=== PATIENT | female | born 1980 | race Caucasian/White ===

== ENCOUNTER 2017-08-08 16:25 | Emergency (ER) | payer OTHER, MEDICAID ==
[~2017-08-08] VITALS: Ht 160 cm; Wt 131.5 kg
[~2017-08-08 16:25] MED LIST: NOHOMEMEDICATIONS
[2017-08-08 17:04] LABS: HEMATOCRIT 41.9 % (37.0-47.0); HEMOGLOBIN 13.9 gm/dL (12.0-15.0); MCH 28.8 pg (26.0-34.0); MCHC 33.3 g/dL (28.0-37.0); MCV 86.6 fL (80.0-100.0); MPV 7.8 fl. (7.2-11.1); NUCLEATED RBCS 0 /100WBC; PLATELET COUNT* 266 thou/uL (150-400); RBC 4.84 mil/uL (4.20-5.00); RDW-CV 13.7 % (10.5-14.5); WBC 6.2 thou/uL (4.0-11.0)
[2017-08-08 17:14] LABS: ANION GAP 10 mmol/L (7-16); BUN 13 mg/dL (7-18); CALCIUM 9.2 mg/dL (8.5-10.1); CHLORIDE 98 mmol/L (98-107); CO2 27 mmol/L (21-32); CREATININE 0.9 mg/dL (0.6-1.3); GLUCOSE 99 mg/dL (70-99); POTASSIUM 3.5 mmol/L (3.5-5.1); SODIUM 135 mmol/L (136-145)
[2017-08-08 17:21] LABS: ALBUMIN 3.6 g/dL (3.4-5.0); ALKALINE PHOSPHATASE 78 U/L (46-116); SGOT 18 U/L (15-37); SGPT 21 U/L (30-65); TOTAL BILIRUBIN 0.6 mg/dL (<0.1-1.0); TOTAL PROTEIN 8.1 g/dL (6.4-8.2); TROPONIN-I LEVEL <0.06 ng/mL (<0.06)
[2017-08-08 17:41] LABS: ABSOLUTE LYMPHOCYTES 0.7 thou/uL (0.8-5.3); ABSOLUTE MONOCYTES 0.4 thou/uL (0.0-1.2); ABSOLUTE NEUTROPHILS 5.1 thou/uL (1.6-8.1); METAMYELOCYTES 1 %
[2017-08-08 17:42] LABS: PLATELET ESTIMATE ADEQUATE
[2017-08-08 17:51] LABS: INFLUENZA A ANTIGEN None Detected (None Detect); INFLUENZA B ANTIGEN None Detected (None Detect)
[2017-08-08] MEDS ORDERED: HYDROCHLOROTHIA25 M2 PO (18:38)
[2017-08-08] MEDS ORDERED: NORCO 10-325 T1 EACH PO (18:38)
[2017-08-08] MEDS ORDERED: LEXAPRO 10 MG T10 MG PO (18:40)
[2017-08-08] MEDS ORDERED: ASPIRIN325 PO (18:40)
[2017-08-08] MEDS ORDERED: PROTONIX40 M1 PO (18:41)
[2017-08-08] MEDS ORDERED: CEFPODOXIME PR200 M1 PO (18:41)
[2017-08-08] MEDS ORDERED: ZYRTEC10 MG PO (18:42)
[2017-08-08] MEDS ORDERED: ACETAMINOPHEN-1 EAC1 PO (18:59)
[2017-08-08] MEDS ORDERED: TESSALON PERLE100 MG PO (18:59)
[2017-08-08] MEDS ORDERED: PROAIR HFA8.5 GM INH (18:59)
[2017-08-08] MEDS ORDERED: ZPAK PO (18:59)
[2017-08-08] MEDS ORDERED: PROMETHAZINE V473 ML PO (18:59)
[2017-08-08] MEDS ORDERED: MEDROLDOSEPACK PO (19:03)
[2017-08-08 19:18] VITALS: BP 105/60
--- NOTE | 2017-08-09 15:58 | EKG ---
[place] [address] ELECTROCARDIOGRAM REPORT Name: RAINER ALEXANDER Room: [facility]#: [id number] Admission: 08/08/17 Attend Phys: Discharge: 08/08/17 Date of : 78 Report #: [id number] THIS REPORT FOR: //name// [facility] ED Test Date: 2017-08-08 Test Time: 16:37:57 Pat Name: RAINER ALEXANDER Department: Room: Gender: F Java Software Developer: NAOMI : 1980 Requested By: Suki Connor Order Number: [id number] MD: Juan Saavedra Measurements Intervals [place] Rate: 117 P: 81 MS: 146 QRS: 5 QRSD: 132 T: 135 QT: 333 QTc: 465 Interpretive Statements Sinus tachycardia Left bundle branch block Baseline wander in lead(s) V1,V3,V4,V6 No previous ECG available for comparison Electronically Signed On 08-09-2017 15:58:15 INSURANCE ACCOUNT MANAGER by Juan Saavedra [email or web address] <ELECTRONICALLY SIGNED> By: Rajesh Saavedra MD, [facility] 08/09/17 1558 36 [phone] Rajesh Saavedra MD, [facility] /EPI
== END 2017-08-08 19:20 | disposition home or self-care (01) ==
LOC: M.ERS 16:25
PROVIDERS: Physician Assistant
DX: J20.9 Acute bronchitis, unspecified (principal); I10 Essential (primary) hypertension

== ENCOUNTER 2018-04-01 11:19 | Emergency (ER) | payer OTHER, MEDICAID ==
[~2018-04-01] VITALS: Ht 157.5 cm; Wt 127.0 kg
[~2018-04-01 11:19] MED LIST changes: +ACETAMINOPHEN-1 EAC1 PO; +ASPIRIN325 PO; +CEFPODOXIME PR200 M1 PO; +HYDROCHLOROTHIA25 M2 PO; +LEXAPRO 10 MG T10 MG PO; +MEDROLDOSEPACK PO; +NORCO 10-325 T1 EACH PO; +PROAIR HFA8.5 GM INH; +PROMETHAZINE V473 ML PO; +PROTONIX40 M1 PO; +TESSALON PERLE100 MG PO; +ZPAK PO; +ZYRTEC10 MG PO
[2018-04-01 12:08] LABS: ABSOLUTE BASOPHILS 0.1 thou/uL (0.0-0.2); ABSOLUTE EOSINOPHILS 0.1 thou/uL (0.0-0.7); ABSOLUTE LYMPHOCYTES 1.4 thou/uL (0.8-5.3); ABSOLUTE MONOCYTES 0.4 thou/uL (0.0-1.2); ABSOLUTE NEUTROPHILS 6.5 thou/uL (1.6-8.1); BASOPHILS 0.7 %; EOSINOPHILS 0.8 %; HEMATOCRIT 42.7 % (37.0-47.0); HEMOGLOBIN 14.1 gm/dL (12.0-15.0); LYMPHOCYTES 16.9 %; MCH 29.7 pg (26.0-34.0); MONOCYTES 4.8 %; NUCLEATED RBCS 0 /100WBC; PLATELET COUNT* 304 thou/uL (150-400); POLYS 76.8 %; RBC 4.75 mil/uL (4.20-5.00); RDW-CV 13.4 % (10.5-14.5); WBC 8.5 thou/uL (4.0-11.0)
[2018-04-01 12:21] LABS: APTT 31.1 Seconds (25.0-31.3); CREATININE 0.9 mg/dL (0.6-1.3); POTASSIUM 3.6 mmol/L (3.5-5.1); PROTIME 10.6 Seconds (9.20-11.50)
[2018-04-01 12:25] LABS: ALBUMIN 3.2 g/dL (3.4-5.0); TOTAL BILIRUBIN 0.4 mg/dL (<0.1-1.0); TOTAL PROTEIN 7.7 g/dL (6.4-8.2)
[2018-04-01 13:23] VITALS: BP 148/100
== END 2018-04-01 13:24 | disposition home or self-care (01) ==
LOC: M.ERS 11:19
PROVIDERS: Nurse Practitioner Family
DX: M79.605 Pain in left leg (principal); I10 Essential (primary) hypertension

== ENCOUNTER 2020-09-20 12:44 | Observation (INO) | payer OTHER, MEDICAID ==
[~2020-09-20] VITALS: Ht 167.6 cm; Wt 129.7 kg
[2020-09-20 12:50] VITALS: BP 183/84
[2020-09-20 13:27] LABS: ABSOLUTE BASOPHILS 0.1 thou/uL (0.0-0.2); ABSOLUTE EOSINOPHILS 0.1 thou/uL (0.0-0.7); ABSOLUTE LYMPHOCYTES 1.8 thou/uL (0.8-5.3); ABSOLUTE MONOCYTES 0.4 thou/uL (0.0-1.2); ABSOLUTE NEUTROPHILS 7.5 thou/uL (1.6-8.1); BASOPHILS 1.3 %; EOSINOPHILS 1.4 %; HEMATOCRIT 43.3 % (37.0-47.0); HEMOGLOBIN 14.4 gm/dL (12.0-15.0); LYMPHOCYTES 18.4 %; MCH 30.8 pg (26.0-34.0); MCHC 33.3 g/dL (28.0-37.0); MCV 92.5 fL (80.0-100.0); MONOCYTES 4.4 %; MPV 7.1 fl. (7.2-11.1); NUCLEATED RBCS 0 /100WBC; PLATELET COUNT* 317 thou/uL (150-400); POLYS 74.5 %; RBC 4.68 mil/uL (4.20-5.00); RDW-CV 12.9 % (10.5-14.5); WBC 10.1 thou/uL (4.0-11.0)
[2020-09-20 13:31] LABS: CALCIUM 9.4 mg/dL (8.5-10.1); CREATININE 0.8 mg/dL (0.6-1.3)
[2020-09-20 13:36] LABS: ALBUMIN 3.6 g/dL (3.4-5.0); TOTAL BILIRUBIN 0.3 mg/dL (<0.1-1.0); TOTAL PROTEIN 7.9 g/dL (6.4-8.2)
[2020-09-20 13:53] LABS: URINE BILIRUBIN NEGATIVE (Negative); URINE BLOOD TRACE (Negative); URINE CLARITY CLEAR; URINE COLOR YELLOW; URINE GLUCOSE-RANDOM NEGATIVE (Negative); URINE KETONES NEGATIVE (Negative); URINE LEUKOCYTES-REFLEX NEGATIVE (Negative); URINE NITRITE-REFLEX NEGATIVE (Negative); URINE PROTEIN NEGATIVE (Negative); URINE SPECIFIC GRAVITY 1.025 (1.005-1.030); URINE UROBILINOGEN 0.2 E.U./dl (0.2-1.0)
--- NOTE | 2020-09-20 16:35 | EKG ---
[place] [address] ELECTROCARDIOGRAM REPORT Name: BENJAMINRAINER B Room: [address] M.R.#: [id number] Admission: 09/20/20 Attend Phys: Nelson Guevara Discharge: Date of : 78 Date of Service: 09/20/20 [facility] Report #: [id number] THIS REPORT FOR: //name// [facility] ED Test Date: 2020-09-20 Test Time: 12:57:45 Pat Name: RAINER ALEXANDER Department: Room: [facility] Gender: F Campus Executive Director: DOMENIC : 1980 Requested By: Viktoriya Patrick Order Number: [id number] MD: Marcus Ontiveros Measurements Intervals [place] Rate: 83 P: 56 SC: 162 QRS: -2 QRSD: 141 T: 96 QT: 402 QTc: 473 Interpretive Statements Sinus rhythm Left bundle branch block Compared to ECG 08/08/2017 16:37:57 Sinus tachycardia no longer present Electronically Signed On 09-20-2020 16:35:24 DIRECTOR OF CLINICAL EDUCATION by Marcus Ontiveros [email or web address] <ELECTRONICALLY SIGNED> By: Marcus Ontiveros MD, FACC 09/20/20 1635 [id number] Marcus Ontiveros MD, FAC /EPI
[2020-09-20 16:40] VITALS: BP 147/96
[2020-09-20 17:27] LABS: CALCIUM 9.4 mg/dL (8.5-10.1); CREATININE 0.8 mg/dL (0.6-1.3); POTASSIUM 4.1 mmol/L (3.5-5.1)
[2020-09-20 17:38] LABS: MAGNESIUM 1.7 mg/dL (1.8-2.4); PHOSPHORUS* 3.5 mg/dL (2.5-4.9)
[2020-09-20 20:30] VITALS: BP 143/83
[2020-09-20] MEDS ORDERED: OMEPRAZOLE40 MG PO (22:42)
[2020-09-20] MEDS ORDERED: DICYCLOMINE HCL20 MG PO (22:43)
[2020-09-20] MEDS ORDERED: VERAPAMIL ER180 M1 PO (22:44)
[2020-09-20] MEDS ORDERED: AMITRIPTYLINE H50 M2 PO (22:44)
[2020-09-20] MEDS ORDERED: PROAIR HFA8.5 GM INH (22:46)
[2020-09-20] MEDS ORDERED: FLUTICASONE-SA1 EAC3 INH (22:46)
[2020-09-20] MEDS ORDERED: VITAMIN D3 PO (22:49)
[2020-09-20] MEDS ORDERED: SERTRALINE HCL100 MG PO (22:50)
[2020-09-20] MEDS ORDERED: AIMOVIG AU140 MG/1 M SUBQ (22:51)
[2020-09-20] MEDS ORDERED: VITAMIN C500 M1 PO (22:52)
[2020-09-20] MEDS ORDERED: ZINC50 M1 PO (22:52)
[2020-09-20] MEDS ORDERED: ZYRTEC10 MG PO (22:53)
[2020-09-21] VITALS (7 sets, daily range): BP systolic 132–177; BP diastolic 44–82
[2020-09-21 04:43] LABS: HEMATOCRIT 38.3 % (37.0-47.0); HEMOGLOBIN 12.6 gm/dL (12.0-15.0); MCH 30.7 pg (26.0-34.0); MCHC 32.8 g/dL (28.0-37.0); MCV 93.5 fL (80.0-100.0); MPV 7.4 fl. (7.2-11.1); RBC 4.1 mil/uL (4.20-5.00); RDW-CV 13.3 % (10.5-14.5); WBC 6.4 thou/uL (4.0-11.0)
[2020-09-21 05:00] LABS: CALCIUM 8.6 mg/dL (8.5-10.1); CREATININE 0.9 mg/dL (0.6-1.3); POTASSIUM 4.3 mmol/L (3.5-5.1)
--- NOTE | 2020-09-21 14:50 | 2DMMODE ---
[place] [address] 2 D/M-MODE ECHOCARDIOGRAM Name: RAINER ALEXANDER Room: [address] Trevor Raygoza#: [id number] Admission: 09/20/20 Attend Phys: Nelson Guevara Discharge: Date of : 78 Date of Service: 09/21/20 1450 Report #: [id number] THIS REPORT FOR: cc: Jonna Pratt Angela Jo RNP Holkins, John M. MD [facility] ~ APPROVED REPORT Study performed: 09/21/2020 10:15:53 EXAM: Comprehensive 2D, Doppler, and color-flow Echocardiogram Patient Location: In-Patient Room #: [facility] Status: routine BSA: 2.23 HR: 77 bpm BP: 132/48 mmHg Rhythm: NSR Other Information Study Quality: Good Indications Chest Pain 2D Dimensions IVSd: 9.12 (7-11mm) LVOT Diam: 19.65 (18-24mm) LVDd: 50.38 mm PWd: 10.99 (7-11mm) Ascending Ao: 27.66 (22-36mm) LVDs: 39.70 (25-40mm) Aortic Root: 29.38 mm Volumes Left Atrial Volume (Systole) LA ESV Index: 28.50 mL/m2 Aortic Valve AoV Peak Amari.: 1.61 m/s AO Peak Gr.: 10.37 mmHg LVOT Max P.04 mmHg AO Mean Gr.: 6.08 mmHg LVOT Mean P.34 mmHg LVOT Max V: 1.12 m/s AO V2 VTI: 31.98 cm LVOT Mean V: 0.69 m/s CARI (VTI): 2.07 cm2 LVOT V1 VTI: 21.80 [place] [address] 2 D/M-MODE ECHOCARDIOGRAM Name: RAINER ALEXANDER Room: [address] M.R.#: [id number] Admission: 09/20/20 Attend Phys: Nelson Guevara Discharge: Date of : 78 Date of Service: 09/21/20 1450 Report #: [id number] Mitral Valve E/A Ratio: 0.87 MV Decel. Time: 70.45 ms MV E Max Amari.: 0.91 m/s MV PHT: 20.43 ms MVA (PHT): 10.77 cm2 TDI E/Lateral E': 7.58 E/Medial E': 9.10 Medial E' Amari.: 0.10 m/s Lateral E' Amari.: 0.12 m/s Pulmonary Valve PV Peak Amari.: 1.23 m/s PV Peak Gr.: 6.07 mmHg Left Ventricle Left ventricle is borderline dilated. 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 There is normal left ventricular wall thickness. Left ventricular systolic function is mildly decreased. LVEF is 45%. Grade IV - fixed restrictive diastolic dysfunction. Right Ventricle The right ventricle is normal size. The right ventricular systolic function is normal. Atria The left atrium size is normal. The right atrium size is normal. Aortic Valve The aortic valve is normal in structure. No aortic regurgitation is present. There is no aortic valvular stenosis. Mitral Valve The mitral valve is normal in structure. Trace mitral regurgitation. No evidence of mitral valve stenosis. Tricuspid Valve The tricuspid valve is normal in structure. Unable to assess PA pressure. Trace tricuspid regurgitation. Pulmonic Valve The pulmonary valve is normal in structure. There is no pulmonic [place] [address] 2 D/M-MODE ECHOCARDIOGRAM Name: RAINER ALEXANDER Room: [address]#: [id number] Admission: 09/20/20 Attend Phys: Nelson Guevara Discharge: Date of : 78 Date of Service: 09/21/20 1450 Report #: [id number] Great Vessels The aortic root is normal in size. IVC is normal in size and collapses >50% with inspiration. Pericardium There is no pericardial effusion. <Conclusion> Left ventricle is borderline dilated. There is normal left ventricular wall thickness. Left ventricular systolic function is mildly decreased. LVEF is 45%. The right ventricle is normal size. The left atrium size is normal. The aortic valve is normal in structure. The mitral valve is normal in structure. Trace mitral regurgitation. IVC is normal in size and collapses >50% with inspiration. There is no pericardial effusion. 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 <ELECTRONICALLY SIGNED> By: Reagan Bynum MD, FACC 09/21/20 1450 1450 1450 Reagan Bynum MD, FACC /INF
[2020-09-21 20:35] LABS: CHOLESTEROL 151 mg/dL (<200); HDL CHOLESTEROL 56 mg/dL (>40); LDL CHOLESTEROL 89 mg/dL (<100); TC:HDL 2.7 Ratio (Not establshd); TRIGLYCERIDE 32 mg/dL (<150); VLDL 6 mg/dL (<40)
[2020-09-21 20:37] LABS: SERUM ASSESSMENT CLEAR
== END 2020-09-21 20:00 | disposition home or self-care (01) ==
LOC: M.ERS 12:44 → M.2W 14:52 → M.TBA-ER 14:52 → M.2W 16:49
PROVIDERS: Physician Assistant; Registered Nurse; ADMIT Internal Medicine; ATTEND Internal Medicine
DX: R07.89 Other chest pain (principal); Z20.822 Contact with and (suspected) exposure to COVID-19; K21.9 Gastro-esophageal reflux disease without esophagitis; I10 Essential (primary) hypertension; J45.909 Unspecified asthma, uncomplicated; G43.909 Migraine, unspecified, not intractable, without status migrainosus; G93.2 Benign intracranial hypertension; Z79.899 Other long term (current) drug therapy

== ENCOUNTER → 2020-09-27 | Outpatient (CLI) | payer OTHER, MEDICAID ==
[~2020-09-27] MED LIST changes: +AIMOVIG AU140 MG/1 M SUBQ; +AMITRIPTYLINE H50 M2 PO; +DICYCLOMINE HCL20 MG PO; +FLUTICASONE-SA1 EAC3 INH; +OMEPRAZOLE40 MG PO; +SERTRALINE HCL100 MG PO; +VERAPAMIL ER180 M1 PO; +VITAMIN C500 M1 PO; +VITAMIN D3 PO; +ZINC50 M1 PO
--- NOTE | 2020-09-27 16:40 | CARDNUC ---
[place] [address] CARDIAC NUCLEAR IMAGING REPORT Name: RAINER ALEXANDER Norma Room: [facility]#: [id number] Admission: 09/27/20 Attend Phys: Marcus Ontiveros, Discharge: Date of : 78 Date of Service: 09/27/20 1639 Report #: [id number] THIS REPORT FOR: cc: Jonna Pratt Angela Jo RNP Liston, Michael J. MD [facility] ~ APPROVED REPORT Imaging Protocol: Stress imaging with delayed rest imaging. Study performed: 09/21/2020 09:40:00 Indication: Chest pain Patient Location: Out-Patient BMI: 0 Resting Data Rest SPECT myocardial perfusion imaging was performed in supine position 30 minutes following the intravenous injection of 27.2 mCi of Tc-99m Sestamibi. Time of rest injection: 10:15 Date: 09/27/2020 The images were gated to evaluate regional wall motion and calculate left ventricular ejection fraction. Administration Route: Straight Stick Administration Site: Right AC Stress Test Details HR Max Heart Rate (APMHR): 179 bpm Target HR (85% APMHR): 152 bpm BP ECG Resting ECG: Sinus Rhythm, LBBB Stress ECG: Sinus tachycardia, LBBB ST Change: None Arrhythmia: None Recovery ECG: Sinus Rhythm, LBBB Recovery ST Change: None Recovery Arrhythmia: None Clinical The patient tolerated Lexiscan infusion without [place] [address] CARDIAC NUCLEAR IMAGING REPORT Name: RAINER ALEXANDER Room: [facility]#: [id number] Admission: 09/27/20 Attend Phys: Marcus Ontiveros, Discharge: Date of : 78 Date of Service: 09/27/20 1639 Report #: [id number] Stress ECG Conclusion Baseline twelve-lead EKG shows sinus rhythm with left bundle branch block. EKGs obtained during and post Lexiscan infusion show sinus rhythm and sinus tachycardia with left bundle branch block. There were no significant ST segment or T wave changes when compared to noted. There were no significant stress-induced arrhythmias. Study Quality Study: Fair Artifact: Moderate Diaphragmatic artifactBreast artifact Study Data At rest, the left ventricular ejection fraction was 46%.. Post stress, the left ventricular ejection was 53%.. TID = 0.85. Perfusion Perfusion images obtained at rest show a moderate region of photopenia involving the basal to distal anterior wall that is not nearly as pronounced on stress images suggesting breast attenuation artifact. Additionally on resting images there is significant photopenia of the inferior wall that is absent on stress images again suggesting diaphragmatic attenuation artifact. No reversible defects are identified. Wall Motion There is septal wall motion abnormality consistent with underlying left bundle branch block. There is hypokinesis to akinesis of the basal to mid inferior wall which may be again due to bundle branch block. There is no perfusion evidence of infarct in this region. Nuclear Conclusion ECG Findings: non-diagnostic Clinical Findings: negative for ischemia Nuclear Findings: negative for ischemia Exercise Capacity: not assessed Left Ventricular Function: abnormal Perfusion images at rest are somewhat limited. Stress images show no evidence of inducible ischemia. There are some wall motion abnormalities felt to be most attributable to left bundle branch block. Left ventricular systolic function is mildly diminished to borderline normal. This is not a high risk study. <Conclusion> [place] [address] CARDIAC NUCLEAR IMAGING REPORT Name: BENJAMINRAINER Norma Room: [facility]#: [id number] Admission: 09/27/20 Attend Phys: Marcus Ontiveros, Discharge: Date of : 78 Date of Service: 09/27/201638 Report #: [id number] Baseline twelve-lead EKG shows sinus rhythm with left bundle branch block. EKGs obtained during and post Lexiscan infusion show sinus rhythm and sinus tachycardia with left bundle branch block. There were no significant ST segment or T wave changes when compared to noted. There were no significant stress-induced arrhythmias. <ELECTRONICALLY SIGNED> By: Marcus Ontiveros MD, [facility] 09/27/201638 38 [id number] Marcus Ontiveros MD, FACC /INF
== END ==
LOC: M.NUC 09-25 15:13
PROVIDERS: ATTEND Internal Medicine Cardiovascular Disease
DX: R07.89 Other chest pain (principal)

== ENCOUNTER → 2020-11-05 | Outpatient (CLI) | payer OTHER, MEDICAID ==
[~2020-11-05] VITALS: Ht 160 cm; Wt 127.0 kg
[~2020-11-05] MED LIST changes: +CARVEDILOL3.125 MG PO; +ZOLOFT25 MG PO
[2020-11-05 10:36] VITALS: BP 119/72; BP 140/74
[2020-11-05 10:39] LABS: CREATININE 0.8 mg/dL (0.6-1.3)
[2020-11-05 11:20] VITALS: BP 157/99
== END ==
LOC: M.CT 09:05
PROVIDERS: Radiology Diagnostic Radiology; ATTEND Registered Nurse
DX: I42.0 Dilated cardiomyopathy (principal); R07.9 Chest pain, unspecified; R06.00 Dyspnea, unspecified

== ENCOUNTER → 2021-04-15 | Outpatient (CLI) | payer OTHER, MEDICAID | LOC: M.RAD 09:34 | PROVIDERS: ATTEND Nurse Practitioner Adult Health | DX: R13.10 Dysphagia, unspecified (principal) ==

== ENCOUNTER → 2021-07-08 | Outpatient (CLI) | payer OTHER, MEDICAID ==
--- NOTE | 2021-07-08 09:57 | 2DMMODE ---
[place] [address] 2 D/M-MODE ECHOCARDIOGRAM Name: RAINER ALEXANDER Room: [facility]#: [id number] Admission: 07/08/21 Attend Phys: Marcus Ontiveros, Discharge: Date of : 78 Date of Service: 07/08/21 0956 Report #: [id number] THIS REPORT FOR: cc: Jonna Pratt Angela Jo RNP Holkins,Reagan Torres MD [facility] ~ APPROVED REPORT Study performed: 07/08/2021 09:57:09 EXAM: Comprehensive 2D, Doppler, and color-flow Echocardiogram Patient Location: Out-Patient BSA: 2.21 HR: 72 bpm BP: 132/72 mmHg Other Information Study Quality: Good Indications Cardiomyopathy 2D Dimensions IVSd: 10.15 (7-11mm) LVOT Diam: 19.47 (18-24mm) LVDd: 51.17 mm PWd: 9.73 (7-11mm) Ascending Ao: 28.18 (22-36mm) LVDs: 42.50 (25-40mm) Aortic Root: 29.84 mm Volumes Left Atrial Volume (Systole) LA ESV Index: 14.10 mL/m2 Aortic Valve AoV Peak Amari.: 1.31 m/s AO Peak Gr.: 6.84 mmHg LVOT Max P.73 mmHg AO Mean Gr.: 4.03 mmHg LVOT Mean P.94 mmHg LVOT Max V: 0.97 m/s AO V2 VTI: 26.64 cm LVOT Mean V: 0.65 m/s CARI (VTI): 1.96 cm2 LVOT V1 VTI: 17.57 cm Mitral Valve E/A Ratio: 0.83 [place] [address] 2 D/M-MODE ECHOCARDIOGRAM Name: RAINER ALEXANDER Room: [facility]#: [id number] Admission: 07/08/21 Attend Phys: Marcus Ontiveros, Discharge: Date of : 78 Date of Service: 07/08/21 0956 Report #: [id number] MV Decel. Time: 138.82 ms MV E Max Amari.: 0.81 m/s MV PHT: 40.26 ms MVA (PHT): 5.46 cm2 TDI E/Lateral E': 8.10 E/Medial E': 10.13 Medial E' Amari.: 0.08 m/s Lateral E' Amari.: 0.10 m/s Pulmonary Valve PV Peak Amari.: 1.09 m/s PV Peak Gr.: 4.73 mmHg Tricuspid Valve RAP Estimate: 5.00 mmHg TR Peak Gr.: 21.34 mmHg RVSP: 26.34 mmHg PA Pressure: 26.34 mmHg Left Ventricle Left ventricle is mildly dilated. There is diffuse hypokinesis of left ventricular wall motion. There is normal left ventricular wall thickness. Left ventricular ejection fraction is severely decreased. LVEF is 25-30%. Grade I - abnormal relaxation pattern. Right Ventricle The right ventricle is normal size. The right ventricular systolic function is normal. Atria The left atrium size is normal. The right atrium size is normal. Aortic Valve The aortic valve is normal in structure. No aortic regurgitation is present. There is no aortic valvular stenosis. Mitral Valve The mitral valve is normal in structure. Mild mitral regurgitation. No evidence of mitral valve stenosis. Tricuspid Valve The tricuspid valve is normal in structure. Mild tricuspid regurgitation. Pulmonic Valve The pulmonary valve is normal in structure[place] [address] 2 D/M-MODE ECHOCARDIOGRAM Name: RAINER ALEXANDER Room: [facility]#: [id number] Admission: 07/08/21 Attend Phys: Marcus Ontiveros, Discharge: Date of : 78 Date of Service: 07/08/21 0956 Report #: [id number] valvular regurgitation. Great Vessels The aortic root is normal in size. IVC is normal in size and collapses >50% with inspiration. Pericardium There is no pericardial effusion. <Conclusion> Left ventricle is mildly dilated. There is normal left ventricular wall thickness. Left ventricular ejection fraction is severely decreased. LVEF is 25-30%. Grade I - abnormal relaxation pattern. The right ventricle is normal size. The left atrium size is normal. The aortic valve is normal in structure. The mitral valve is normal. Mild mitral regurgitation. The tricuspid valve is normal in structure. Mild tricuspid regurgitation. IVC is normal in size and collapses >50% with inspiration. There is no pericardial effusion. There is diffuse hypokinesis of left ventricular wall motion. <ELECTRONICALLY SIGNED> By: Reagan Bynum MD, [facility] 07/08/21 0956 Reagan Bynum MD, FACC /INF
== END ==
LOC: M.CRD 08:45
PROVIDERS: ATTEND Internal Medicine Cardiovascular Disease
DX: I08.1 Rheumatic disorders of both mitral and tricuspid valves (principal); I42.8 Other cardiomyopathies

== ENCOUNTER → 2021-09-04 | Outpatient (CLI) | payer OTHER, MEDICAID | LOC: M.RAD 10:05 | PROVIDERS: ATTEND Nurse Practitioner Family | DX: R05.3 Chronic cough (principal) ==

== ENCOUNTER → 2021-09-11 | Outpatient (CLI) | payer OTHER, MEDICAID | LOC: M.RAD 09-10 12:10 | PROVIDERS: ATTEND Nurse Practitioner Family | DX: N63.20 Unspecified lump in the left breast, unspecified quadrant (principal); R92.8 Other abnormal and inconclusive findings on diagnostic imaging of breast ==